=== PATIENT | female | born 1995 | race Caucasian/White ===

== ENCOUNTER 2017-11-06 16:52 | Emergency (ER) | payer OTHER, MEDICAID ==
[2017-11-06] MEDS: ACETAMINOPHEN 500 MG TAB PO (19:57)
== END 2017-11-06 21:15 | disposition home or self-care (01) ==
LOC: FTE 16:52
DX: J02.0 Streptococcal pharyngitis (principal)
CPT/HCPCS: 87400; 87430; 87880; 99283